=== PATIENT | female | born 1995 | race Caucasian/White ===

== ENCOUNTER 2021-04-08 04:00 | Inpatient (IN) | payer OTHER ==
[2021-04-08] VITALS (38 sets, daily range): BP systolic 75–124; BP diastolic 43–69
[~2021-04-08] VITALS: Ht 167.6 cm; Wt 86.4 kg
[~2021-04-08 04:00] MED LIST: AUGMENTIN 875-1 EACH PO; BACTRIM DS TAB1 EAC1 PO; CEPHALEXIN500 MG PO; Cephalexin 500 MG Ca PO; DAKIN'S473 M2 TOP; FLUCONAZOLE 10100 MG PO; HUMALOG100 UNIT/1 SUBQ; LANTUS SUBQ; MICONAZOLE NITR45 GM VAG
[2021-04-08 04:42] LABS: URINE BILIRUBIN NEGATIVE (Negative); URINE BLOOD 1+ (Negative); URINE CLARITY CLEAR; URINE COLOR YELLOW; URINE GLUCOSE-RANDOM* 3+ (Negative); URINE KETONES 3+ (Negative); URINE LEUKOCYTES-REFLEX NEGATIVE (Negative); URINE NITRITE-REFLEX NEGATIVE (Negative); URINE PROTEIN (DIPSTICK) 1+ (Negative); URINE UROBILINOGEN 0.2 E.U./dl (0.2-1.0)
[2021-04-08 04:59] LABS: HEMATOCRIT 32.9 % (37.0-47.0); HEMOGLOBIN 9.4 gm/dL (12.0-15.0); MCH 32.8 pg (26.0-34.0); MCHC 28.6 g/dL (28.0-37.0); MCV 114.5 fL (80.0-100.0); PLATELET COUNT 223 thou/uL (150-400); RBC 2.87 mil/uL (4.20-5.00); RDW 17.8 % (10.5-14.5); WBC 32.1 thou/uL (4.0-11.0)
[2021-04-08 05:13] LABS: ALBUMIN 1.6 g/dL (3.4-5.0); BUN 20 mg/dL (7-18); CALCIUM 9.7 mg/dL (8.5-10.1); CHLORIDE 96 mmol/L (98-107); CREATININE 1.4 mg/dL (0.6-1.0); POTASSIUM 5.2 mmol/L (3.5-5.1); SGOT 39 U/L (15-37); SGPT 53 U/L (14-59); SODIUM 133 mmol/L (136-145); TOTAL BILIRUBIN 1.2 mg/dL (0.2-1.0); TOTAL PROTEIN 6.8 g/dL (6.4-8.2)
[2021-04-08 05:14] LABS: ANION GAP 32 mmol/L (7-16)
[2021-04-08 05:16] LABS: CO2 < 5 mmol/L (21-32); GLUCOSE 717 mg/dL (74-106)
[2021-04-08 05:25] LABS: BACTERIA-REFLEX 1-9 Few /HPF (None Seen); CELLULAR CASTS 4-10 Moderate /LPF (None Seen); CRYSTALS None Seen /LPF (None Seen); MUCUS 4-6 Moderate strn/LPF (None Seen); SQUAMOUS 4-10 Moderate /LPF (0-3); URINE RBC 3-10 Few /HPF (NONE SEEN); URINE WBC-REFLEX 0-5 Rare /HPF (0-5)
[2021-04-08 05:26] LABS: BE(vivo) -31.1 mmol/L (-2 to +3); HCO3 1.9 mmol/L (22.0-26.0); PCO2 VENOUS 12.8 mmHg (41.0-51.0); PO2 VENOUS 126.4 mmHg (35.0-45.0)
[2021-04-08 06:23] LABS: MAGNESIUM 2.5 mg/dL (1.8-2.4)
[2021-04-08 06:53] LABS: ANISOCYTOSIS 1+; MACROCYTES 3+; PLATELET ESTIMATE NORMAL; POIKILOCYTOSIS 1+
--- NOTE | 2021-04-08 08:15 | NUR ---
Pt arrived from ED lethargic, BP stahble at 112/64, HR 132, insulin gtt and IVF infusing. O2 sat 98% on 2L NC. Caldwell present and intact. RT unable to run venous gas sample as not enough was collected, will attempt to collect from PIV.
[2021-04-08 08:48] LABS: ALBUMIN 1.7 g/dL (3.4-5.0); BUN 20 mg/dL (7-18); CALCIUM 9.8 mg/dL (8.5-10.1); CHLORIDE 96 mmol/L (98-107); CREATININE 1.5 mg/dL (0.6-1.0); PHOSPHORUS 7.9 mg/dL (2.6-4.7); POTASSIUM 5.3 mmol/L (3.5-5.1); SODIUM 133 mmol/L (136-145)
[2021-04-08 08:49] LABS: ANION GAP 32 mmol/L (7-16)
[2021-04-08 08:50] LABS: CO2 < 5 mmol/L (21-32); GLUCOSE 742 mg/dL (74-106)
--- NOTE | 2021-04-08 10:21 | NUR ---
Pt mentation beginning to clear, able to give one word answers. RN asked pt if any non-prescribed medications or substances had been used, pt stated no. RN asked if she completed PO ABX she was sent home with last admission for her abscess/wound and pt stated no. Lab at bedside to draw q 4 hr RFP and mag level.
[2021-04-08 11:08] LABS: ALBUMIN 1.4 g/dL (3.4-5.0); CALCIUM 8.8 mg/dL (8.5-10.1); CREATININE 1.4 mg/dL (0.6-1.0); MAGNESIUM 2.1 mg/dL (1.8-2.4); POTASSIUM 3.8 mmol/L (3.5-5.1)
--- NOTE | 2021-04-08 12:56 | NUR ---
Pt stated okay for RN to call pt mother. Updated mother on current status and plan of care. Mother states "she doesn't know what to do with the pt anymore as she doesn't take her medicine or follow the diet plan." Will give updates in future as plan of care changes/evolves.
--- NOTE | 2021-04-08 13:39 | NUR ---
VAT CONSULTED FOR PICC LINE. DISCUSSED BENEFITS AND RISK OF PICC WITH PT, VERBALIZED UNDERSTANDING. PT'S LABS,MEDS,HX ORDER CONFIRMED. LEAH BASILIC WAS WIDELY PATENT WITH USG, MEASURED 41%. 5FR TL POWER PICC TRIMMED TO 40CM INSERTED TO 3CM EXTERNAL X 1 STICK WITH PEAKED P-WAVES ON 3CG FOR CONFIRMATION. PT TOLERATED WELL. PICC RELEASED FOR IMMEDIATE USE PER PROTOCOL.
--- NOTE | 2021-04-08 14:37 | NUR ---
Pt returned from CT, BP now 79/[address] Sams. Pt lethargic, occasionally crying out for water.
[2021-04-08 15:14] LABS: ALBUMIN 1.3 g/dL (3.4-5.0); CALCIUM 8.6 mg/dL (8.5-10.1); CREATININE 1.3 mg/dL (0.6-1.0); MAGNESIUM 1.9 mg/dL (1.8-2.4); PHOSPHORUS 1.8 mg/dL (2.6-4.7); POTASSIUM 3.3 mmol/L (3.5-5.1)
--- NOTE | 2021-04-08 15:48 | NUR ---
Chart review completed, pt unable to complete sentences and appears lethargic. Pt admitted for DKA, sepsis and has a hx of medical noncompliance. SW provided pt's Mother, Celia phone number [phone] and this SW contacted and left w/ callback number [phone]. Pt not medically stable to transition from ICU at this time. Insurance: Currently in review PCP: None CM following for assessment completion and D/C needs
--- NOTE | 2021-04-08 16:56 | NUR ---
RN spoke with pt mom on phone, gave update on imaging results and plan for surgery. Mom and dad both concerned for pt ability to care for self after admission including working/time off and paying bills. Repeated hospital admissions seeking pain medicine and diabetes care concerning per mother who states pt routinely goes to different ER's in search of dilauded and other pain medicines. Parents on their way to visit with patient.
[2021-04-08 18:25] LABS: CALCIUM 7.6 mg/dL (8.5-10.1); CREATININE 1.2 mg/dL (0.6-1.0); MAGNESIUM 1.6 mg/dL (1.8-2.4)
--- NOTE | 2021-04-08 18:46 | NUR ---
Mother and aunt at bedside talking with pt about current status and potential outcomes.
[2021-04-08 22:16] LABS: CALCIUM 8.1 mg/dL (8.5-10.1); CREATININE 1.2 mg/dL (0.6-1.0); MAGNESIUM 1.6 mg/dL (1.8-2.4)
[2021-04-09] VITALS (44 sets, daily range): BP systolic 82–117; BP diastolic 47–83
[2021-04-09 02:48] LABS: ALBUMIN 1.2 g/dL (3.4-5.0); CALCIUM 7.9 mg/dL (8.5-10.1); PHOSPHORUS 1.2 mg/dL (2.5-4.9); POTASSIUM 3.3 mmol/L (3.5-5.1)
--- NOTE | 2021-04-09 04:36 | NUR ---
PT CAN SPEAK CLEARLY, STATING "I NEED THE BATHROOM" OR "MAY I HAVE SOME WATER" BUT WILL OFTEN NOT RESPOND TO QUESTIONS APPROPRIATELY, EITHER NOT RESPONDING OR GIVING AN INAPPROPRIATE RESPONSE. MOANING OFF AND ON, FREQUENTLY. MOANING INCREASES WHEN STAFF ARE IN THE ROOM. PT CRYING LOUDLY AT ONE POINT, WHEN THIS RN ASKED WHAT WAS WRONG, SHE STATED "I NEED RUGRATS." THIS RN ASKED IF SHE WANTED THE TV ON, PT STATED NO "I JUST NEED RUGRATS." FURTHER CLARIFICATION OF WHAT RUGRATS WOULD DO FOR PATIENT GOT NO RESPONSE FROM PT, JUST BEGAN CRYING AND REPEATING "RUGRATS." REMOVED EJ, PRESSURE HELD BY RN. ST, SATS STABLE ON RA, BP STABLE ON LEVO, INSULIN GTT TITRATED VIA PROTOCOL. VERY RESTLESS IN BED, CRYING OUT EVERY TIME SOMEONE TOUCHES PT.
[2021-04-09 06:49] LABS: ALBUMIN 1.2 g/dL (3.4-5.0); CALCIUM 8.1 mg/dL (8.5-10.1); CREATININE 1.1 mg/dL (0.6-1.0); PHOSPHORUS 1.3 mg/dL (2.6-4.7); POTASSIUM 3.3 mmol/L (3.5-5.1)
[2021-04-09 08:27] LABS: HEMATOCRIT 25.9 % (37.0-47.0); HEMOGLOBIN 8.4 gm/dL (12.0-15.0); MCH 32.6 pg (26.0-34.0); MCHC 32.3 g/dL (28.0-37.0); PLATELET COUNT 183 thou/uL (150-400); RBC 2.57 mil/uL (4.20-5.00); RDW 15.7 % (10.5-14.5)
[2021-04-09 08:40] LABS: MCV 100.9 fL (80.0-100.0)
[2021-04-09 09:44] LABS: ABSOLUTE NEUTROPHILS 14.8 thou/uL (1.4-8.2); ANISOCYTOSIS 1+
[2021-04-09 10:11] LABS: CALCIUM 8.1 mg/dL (8.5-10.1); MAGNESIUM 2.1 mg/dL (1.8-2.4); POTASSIUM 3.5 mmol/L (3.5-5.1)
--- NOTE | 2021-04-09 11:36 | NUR ---
Pt sent to surgery with pre-op team. Mom and aunt at bedside informed of new visitor and mask policy, both agreed they understood and would abide. They are both going home and will call for updates after surgery.
--- NOTE | 2021-04-09 14:15 | NUR ---
Discussed during los and unite rounds. Charlene going for appendectomy today. Cm visited with her mom krishna via phone call. She reported daughter lives in apartment with short term roommate, no stair, there is elevator to get to her apartment. She independent, and will lie to get you to leave her alone. [place] [facility] [place] get her signed up with health insurance. She work for [employer] and did not do insurance before time was up. Once turn 25 cant be on my insurance any longer and we work together at the [employer]. [place] [facility] [facility] [place] she was dc [place] [facility]. She manage own medication, can drive but car to[facility]. No pcp, was going to get set up at [facility].per krishna. Will cont following as needed for dc needs.
--- NOTE | 2021-04-09 16:01 | NUR ---
Pt arrived back from OR - VSS, art line draws well, has good waveform. Pt currently off pressors, awakens to voice.
[2021-04-09 16:45] LABS: ALBUMIN 1.2 g/dL (3.4-5.0); CALCIUM 7.5 mg/dL (8.5-10.1); TOTAL BILIRUBIN 0.7 mg/dL (0.2-1.0); TOTAL PROTEIN 5.7 g/dL (6.4-8.2)
--- NOTE | 2021-04-09 18:35 | NUR ---
Spoke with pt mom - surgeon did not call her after pt returned to room. RN updated mom that pt is stable, off levophed, maintaining with fluids and antibiotics along with insulin gtt. Mom states she put pt phone on security and compliance analyst and would text her tomorrow to check on her.
[2021-04-10] VITALS (70 sets, daily range): BP systolic 87–124; BP diastolic 60–90
[2021-04-10 03:21] LABS: ABSOLUTE NEUTROPHILS 8.8 thou/uL (1.4-8.2); BASOPHILS 0.2 % (0.0-2.0); HEMATOCRIT 24.2 % (37.0-47.0); HEMOGLOBIN 8.1 gm/dL (12.0-15.0); LYMPHOCYTES 8.8 % (24.0-44.0); MCH 33.3 pg (26.0-34.0); MCHC 33.5 g/dL (28.0-37.0); MCV 99.4 fL (80.0-100.0); MONOCYTES 3.6 % (1.0-8.0); PLATELET COUNT 130 thou/uL (150-400); POLYS 87.4 % (36.0-66.0); RBC 2.43 mil/uL (4.20-5.00); RDW 15.8 % (10.5-14.5); WBC 10.1 thou/uL (4.0-11.0)
[2021-04-10 03:37] LABS: ALBUMIN 1.1 g/dL (3.4-5.0); CALCIUM 7.7 mg/dL (8.5-10.1); CREATININE 0.8 mg/dL (0.6-1.0); POTASSIUM 3.8 mmol/L (3.5-5.1); TOTAL BILIRUBIN 0.4 mg/dL (0.2-1.0); TOTAL PROTEIN 5.3 g/dL (6.4-8.2)
--- NOTE | 2021-04-10 05:49 | NUR ---
PT S/P APPENDECTOMY POST OP#1.PT BEEN SLEEPING MOST OF THE NOC AND SEEMS VERY DROWSY.EASILY AROUSED.REMAINS A/OX3,FOLLOWS COMMANDS APPROPRIATELY AND CO-OPERATIVE W/CARE,VSS.PT STATED THAT SHE IS VERY TIRED AND WANTS TO GET SOME REST.SHE MOANS WHENEVER TOUCHED OTHERWISE NO C/O PAIN AT THIS TIME.LAP SITE TO ABDOMEN INTACT,W/O ACTIVE BLEEDING.PT DENIES N/V,ADMITS TO PASSING FLATUS.BS VERY HYPOACTIVE.ABD VERY TENDER ESPECIALLY RLQ.INSULIN GTT INFUSING PER PROTOCOL.IVF.DEONTE DD,ADEQUATE UO.PT MUM CALLED PT THIS MORNING.NO CONCERNS VOICED.WILL CONT W/POC.
--- NOTE | 2021-04-10 09:00 | NUR ---
Dr. Stafford present. diabetic diet ordered.
--- NOTE | 2021-04-10 10:00 | NUR ---
Dr. Sams present. per discussion with Dr. Sams, he will place orders to discontinue DKA protocol, iv fluids with dextrose, simón, garcia and start diet order. pt requesting po intake at this time. immediately started with water/ice chips after Dr. Sams discussed increased po intake with pt. boyfriend in room at this time providing support to pt.
--- NOTE | 2021-04-10 15:29 | NUR ---
Chart review, discussed during los and unite rounds. Cm left good rx card, safety net packet. Cm tried x 2 to visit with her, resting with eyes closed. Cm also tried calling her cell phone [phone], no answer. DCP home
[2021-04-10 19:53] LABS: CALCIUM 8.1 mg/dL (8.5-10.1); CREATININE 0.9 mg/dL (0.6-1.0); POTASSIUM 4.5 mmol/L (3.5-5.1)
[2021-04-10 19:54] LABS: MAGNESIUM 1.9 mg/dL (1.8-2.4)
[2021-04-11] VITALS (30 sets, daily range): BP systolic 76–104; BP diastolic 46–74
[2021-04-11 00:46] LABS: CALCIUM 7.4 mg/dL (8.5-10.1); CREATININE 0.8 mg/dL (0.6-1.0); MAGNESIUM 1.9 mg/dL (1.8-2.4)
[2021-04-11 00:55] LABS: POTASSIUM 4.6 mmol/L (3.5-5.1)
[2021-04-11 04:35] LABS: ABSOLUTE NEUTROPHILS 10.3 thou/uL (1.4-8.2); BASOPHILS 0.2 % (0.0-2.0); HEMATOCRIT 24.3 % (37.0-47.0); HEMOGLOBIN 8.1 gm/dL (12.0-15.0); LYMPHOCYTES 10.6 % (24.0-44.0); MCH 32.6 pg (26.0-34.0); MCHC 33.1 g/dL (28.0-37.0); MCV 98.2 fL (80.0-100.0); MONOCYTES 4.1 % (1.0-8.0); PLATELET COUNT 143 thou/uL (150-400); POLYS 85.1 % (36.0-66.0); RBC 2.48 mil/uL (4.20-5.00); RDW 15.3 % (10.5-14.5); WBC 12.1 thou/uL (4.0-11.0)
[2021-04-11 04:47] LABS: ALBUMIN 1.1 g/dL (3.4-5.0); CALCIUM 7.5 mg/dL (8.5-10.1); CREATININE 0.8 mg/dL (0.6-1.0); MAGNESIUM 1.9 mg/dL (1.8-2.4); POTASSIUM 4.4 mmol/L (3.5-5.1); TOTAL BILIRUBIN 0.3 mg/dL (0.2-1.0)
[2021-04-11 09:46] LABS: CALCIUM 7.8 mg/dL (8.5-10.1); CREATININE 0.8 mg/dL (0.6-1.0); MAGNESIUM 1.7 mg/dL (1.8-2.4); POTASSIUM 4.2 mmol/L (3.5-5.1)
[2021-04-11 10:28] LABS: URINE BILIRUBIN NEGATIVE (Negative); URINE BLOOD TRACE (Negative); URINE CLARITY CLEAR; URINE COLOR YELLOW; URINE GLUCOSE-RANDOM* NEGATIVE (Negative); URINE KETONES NEGATIVE (Negative); URINE LEUKOCYTES 2+ (Negative); URINE NITRITE NEGATIVE (Negative); URINE PROTEIN (DIPSTICK) NEGATIVE (Negative); URINE UROBILINOGEN 0.2 E.U./dl (0.2-1.0)
[2021-04-11 10:54] LABS: SQUAMOUS None Seen /LPF (0-3); YEAST Present (None Seen)
[2021-04-11 10:55] LABS: BACTERIA 1-9 Few /HPF (None Seen); CASTS None Seen /LPF (None Seen); CRYSTALS None Seen /LPF (None Seen); URINE RBC 1-2 Rare /HPF (NONE SEEN)
[2021-04-12] VITALS (30 sets, daily range): BP systolic 70–112; BP diastolic 44–79
[2021-04-12 04:38] LABS: ABSOLUTE NEUTROPHILS 7.4 thou/uL (1.4-8.2); BASOPHILS 0.1 % (0.0-2.0); EOSINOPHILS 0.1 % (0.0-3.0); HEMATOCRIT 23.7 % (37.0-47.0); HEMOGLOBIN 7.9 gm/dL (12.0-15.0); LYMPHOCYTES 17.2 % (24.0-44.0); MCH 33.3 pg (26.0-34.0); MCHC 33.4 g/dL (28.0-37.0); MCV 99.5 fL (80.0-100.0); MONOCYTES 7.4 % (1.0-8.0); PLATELET COUNT 155 thou/uL (150-400); POLYS 75.2 % (36.0-66.0); RBC 2.38 mil/uL (4.20-5.00); RDW 15.7 % (10.5-14.5); WBC 9.8 thou/uL (4.0-11.0)
[2021-04-12 04:58] LABS: ALBUMIN 1.1 g/dL (3.4-5.0); CALCIUM 7.8 mg/dL (8.5-10.1); CREATININE 0.8 mg/dL (0.6-1.0); MAGNESIUM 1.7 mg/dL (1.8-2.4); POTASSIUM 3.8 mmol/L (3.5-5.1); TOTAL BILIRUBIN 0.4 mg/dL (0.2-1.0); TOTAL PROTEIN 4.9 g/dL (6.4-8.2)
[2021-04-13] VITALS (13 sets, daily range): BP systolic 73–107; BP diastolic 45–74
[2021-04-13 04:02] LABS: HEMATOCRIT 23.4 % (37.0-47.0); HEMOGLOBIN 7.7 gm/dL (12.0-15.0); MCH 32.6 pg (26.0-34.0); MCHC 32.9 g/dL (28.0-37.0); MCV 99.3 fL (80.0-100.0); RBC 2.36 mil/uL (4.20-5.00); RDW 15.6 % (10.5-14.5); WBC 11.9 thou/uL (4.0-11.0)
[2021-04-13 04:05] LABS: CALCIUM 7.7 mg/dL (8.5-10.1); CREATININE 0.6 mg/dL (0.6-1.0); MAGNESIUM 1.8 mg/dL (1.8-2.4); POTASSIUM 3.6 mmol/L (3.5-5.1)
--- NOTE | 2021-04-13 16:18 | NUR ---
Chart review, discussed during LOS and unite round. Noted she was resting in bed with eyes closed. Possible able to transfer out of icu, when bed available Will cont. following as needed for dc needs.
[2021-04-14 00:13] VITALS: BP 98/56
[2021-04-14 00:55] VITALS: BP 119/72
[2021-04-14 04:14] VITALS: BP 133/85
--- NOTE | 2021-04-14 05:28 | NUR ---
RECEIVED REPORT FROM CARD DECORATOR. PT ARRIVED TO [facility] ROOM AROUND 0045. ASSESSMENT COMPLETED CHARTED. SHE C/O MILD ABDOMINAL PAIN BUT DID NOT WANT ANY PAIN MEDICATION. DENIES N/V. UP W/ SBA TO BTR TO VOID. TOLERATED WELL, BUT C/O SOME FATIGUE AFTER AMBULATING. IVF INFUSING ORDERED. PROGRESSING TOWARD POC GOALS. WILL CONTINUE TO MONITOR FURTHER.
[2021-04-14 07:26] VITALS: BP 109/66
--- NOTE | 2021-04-14 15:37 | NUR ---
ASSUMED PT CARE THIS AM. PT IS ALERT & ORIENTED X4. PT HAS R UA TRIPLE LUMEN PICC LINE. PT IS ON TELE MONITOR ON. PT IS UP AD SOCRATES. PT REFUSED SCD AND HEPARIN. PT IS ON ROOM AIR. PT IS ACCUCHECK ACHS. PT TOLERATED MEDICATION AND DIET WELL. NO C/O OF NAUSEA AND VOMITING DURING THE SHIFT. PT ON THE BED, BED ON THE LOWEST POSITION, SIDE RAILS UP, CALL LIGHT WITHIN REACH. WILL CONTINUE TO MONITOR PT. FOLLOW POC.
[2021-04-14 16:58] VITALS: BP 125/72
[2021-04-14 20:00] VITALS: BP 120/78
--- NOTE | 2021-04-15 04:41 | NUR ---
PT REMAIN ALERT AND ORIENT TIMES FOUR. UP AD SOCRATES. VSS, AFEBRILE. SR-ST PER MONITOR. PROGRESSSING WELL TOWARDS DC GOALS. WILL CONTINUE TO MONITOR. PRN PAIN MEDS GIVEN FOR ABDOMINAL PAIN.
[2021-04-15 07:50] VITALS: BP 130/80
--- NOTE | 2021-04-15 08:11 | NUR ---
Nutrition: assessed for LOS. Admit with DKA, sepsis, s/p lap appy 04/09. Wt up significantly from admit, prior UBW reported 178 lb. I>O since admit. Albumin 1.1, CO2 20. B-295. Meds: insulin, IVF, KCl. Noted intake recorded for yesterday about 50%, prior intake 100%. Pt reported that yesterday she ate well, 75% or more at meals. Pt reported wound from January in healed. Thinks she is eating enough; can't tolerate supplements. Physicain noted severe protein calorie malnutition, defer dx. Pt does not appear at signicicant nutrition risk at this time.
--- NOTE | 2021-04-15 11:07 | PATH ---
[facility] [address] [place] [address] PATHOLOGY RPT PROCEDURE Name: SALOMON FISHER Room #: 449-I ADM IN M.R.#: [id number] Admission: 04/08/21 Date of : 89 Discharge: Report #: [id number] Path Case #: [id number] L[facility] Accession Number: [id number] . 01 Material submitted: . appendix - APPENDIX . 01 Clinical history: . APPENDICITIS LAPAROSCOPIC APPENDECTOMY . 02 Diagnosis: Appendix, appendectomy: - Moderate acute appendicitis along with acute serositis. - Fibrous obliteration of the tip of appendix. (IUV/db; 04/13/2021) LBQ 04/13/2021 1810 Local . 02 Electronically signed: . Anne Barr MD, Pathologist NPI- [id number] . 01 Gross description: . Fixative: Formalin Labeled: Appendix Appendix length: 3.5 cm Appendix diameter: 1.1 cm Mesoappendix: 0.7 cm Proximal margin: Stapled Serosa: Pale menendez with a moderate amount of overlying adhesions Cut surface: Pinpoint lumen Luminal diameter: Up to 0.2 cm Perforation: None identified Lesions/abnormalities: None identified . Proximal margin and bisected tip in cassette A1. The remainder of the appendix is submitted in cassettes A2 and A3. (CAA; 04/10/2021) QAC/QAC 04/10/2021 1149 Local . 02 Pathologist provided ICD-10: K35.80, K38.8 . 02 CPT . [id number] Specimen Comment: A courtesy copy of this report has been sent to [phone], [phone] [phone] PATHOLOGY RPT PROCEDURE Name: SALOMON FISHER Room #: 449-I [facility]#: [id number] Admission: 04/08/21 Date of : 89 Discharge: Report #: [id number] Path Case #: [id number] Specimen Comment: [id number] Specimen Comment: Report sent to / DR DYE Specimen Comment: A duplicate report has been generated due to demographic updates. Performed at: [facility] [place] [address], [place], [place] [id number] MD Marco A Raines MD Phone: [phone] Performed at: [address] [id number] MD Anne Barr MD Phone: [phone]
--- NOTE | 2021-04-15 11:25 | NUR ---
Assumed pt care this am, vs stable. diet and medications tolerated well. 4 lap sited c/d/i. POC followed with no signs or verbalizations of distres noted.
--- NOTE | 2021-04-15 16:21 | NUR ---
CARE TEAM INDIATED THAT ID IS TO DETERMINE DURATION OF IV ABX. IT IS ANTIPATED THAT PT WILL BE ABLE TO TRANSITION TO ORAL ABX UPON DC. NO NEEDS ANTICAPTED UPON DC.
[2021-04-15 16:30] VITALS: BP 110/66
[2021-04-15 22:10] VITALS: BP 118/78
--- NOTE | 2021-04-16 02:58 | NUR ---
PT CARE ASSUMED AT 1900 WITH PT IN BED WITH VISITOR AT BEDSIDE.PT IS A/O X4.PT IS UP AD SOCRATES AND CALLS APPRIOPRIETEL FOR HELP.PT DENIED PAIN,N/V.PT HAS 4LAP SITES I/C/D.IV ACCESS LEAH TRIPLE LUMEN PICC WITH NS AT 150CC/HR.WILL CONTINUE TO MONITOR
[2021-04-16 07:14] VITALS: BP 119/73
[2021-04-16] MEDS ORDERED: FLAGYL500 M1 PO (10:43)
[2021-04-16] MEDS ORDERED: HYDROCODON-ACE1 EAC7 PO (10:43)
[2021-04-16] MEDS ORDERED: HUMALOG100 UNIT/1 SUBQ (10:43)
[2021-04-16] MEDS ORDERED: LANTUS SUBQ (10:43)
[2021-04-16] MEDS ORDERED: ACETAMINOPHEN325 M1 PO (10:43)
[2021-04-16] MEDS ORDERED: CEFDINIR300 MG PO (10:43)
--- NOTE | 2021-04-16 15:16 | NUR ---
Pt is to transition to oral abx. No needs identified from case management, anticipating dc today.
--- NOTE | 2021-04-16 17:07 | NUR ---
paged 4 times with no callback for patients back to work note. Nurse called Nurse rice milling supervisor Pravin to make him aware and he texted him to call nurse MARLO with no response. Nurse called Dr. Beckwith and he had nurse write back to work note. Dr. Sams called @ 1700. Patients right upper arm PICC pulled, gauze amd pressure appiled. No pain noted at this time. Patients boyfriend is going to pick her up. Nurse completed discharge teaching to pateint.
== END 2021-04-16 18:25 | disposition home or self-care (01) | DRG 853 ==
LOC: ER 04:00 → EROBS 05:38 → ICU 07:31 → 4W 04-14 00:51
PROVIDERS: Emergency Medicine; Hospitalist; Internal Medicine Pulmonary Disease; Nurse Practitioner; Nurse Practitioner Family; Surgery; ADMIT Internal Medicine; ATTEND Internal Medicine
DX: A41.51 Sepsis due to Escherichia coli [E. coli] (principal); E10.10 Type 1 diabetes mellitus with ketoacidosis without coma; J96.01 Acute respiratory failure with hypoxia; E43 Unspecified severe protein-calorie malnutrition; N17.0 Acute kidney failure with tubular necrosis; G92 Toxic encephalopathy; R65.21 Severe sepsis with septic shock; K35.80 Unspecified acute appendicitis; Z20.822 Contact with and (suspected) exposure to COVID-19; I95.9 Hypotension, unspecified; D53.9 Nutritional anemia, unspecified; K57.90 Diverticulosis of intestine, part unspecified, without perforation or abscess without bleeding; Z79.899 Other long term (current) drug therapy; Z88.8 Allergy status to other drugs, medicaments and biological substances; Z68.30 Body mass index [BMI] 30.0-30.9, adult; Z91.14 Patient's other noncompliance with medication regimen
CPT/HCPCS: 10045; 10078; 10203; 27000; 50010; 50101; 50411; 50555; 50558; 50739; 51489; 52265; 52266; 53307; 53310; 54022; 54118; 56462; 56525; 56526; 57257; 58574; 58867; 62110; 62900; 65020; 70005